=== PATIENT | male | born 1975 | race Caucasian/White ===

== ENCOUNTER 2021-07-04 12:57 | Outpatient (REF) | payer MEDICARE, MEDICAID, SELFPAY ==
[2021-07-04 15:05] LABS: Calculated LDL 131 mg/dL (<100); Cholesterol 205 mg/dL (<200); HDL Cholesterol 47 mg/dL (40-60); Triglyceride 137 mg/dL (<150)
[2021-07-04 15:13] LABS: Hemoglobin A1C 5.1 % (<5.7)
[2021-07-07 10:30] LABS: Hepatitis C Ab w Rflx HCV PCR Negative (Negative)
[2021-07-07 10:50] LABS: HIV-1/2 Ag & Ab Screen Negative (Negative)
== END 2021-07-04 12:58 | disposition home or self-care (01) ==
LOC: NCHCN 12:57
PROVIDERS: PCP Family Medicine; Visit Provider Family Medicine
DX: Z00.00 Encounter for general adult medical examination without abnormal findings (principal); Z11.4 Encounter for screening for human immunodeficiency virus [HIV]; Z11.59 Encounter for screening for other viral diseases
CPT/HCPCS: 80061; 86803; 87389; 83036

== ENCOUNTER 2022-11-10 18:27 | Outpatient (REF) | payer MEDICARE, MEDICAID, SELFPAY ==
--- NOTE | 2022-11-10 15:00 | SKI_PTH ---
PATIENT: Wild Baird LOC: [facility] U#:[id number] AGE/SX: 47/M ROOM: RE11/10/[address]: Loi Kline : 1975 BED: DIS: 11/10/2022 SPEC #: [id number] RECD: 11/10/22 18:34 STATUS: JOSHUA LUGO #: [id number] MANJINDER: 11/10/22 15:[address]: Loi Kline DEPT: Surgical Specimen RECD BY: Gisela Wong Tissues: 1 - SKIN BIOPSY(SHAVE/PUNCH) Procedures: SKIN LEVEL 4 Comments:
--- OUTSIDE RECORDS SUMMARY | 2022-11-10 18:35 | XMS_ITS | CCD ---
Author Name Unknown Address [address] [place] [address] [phone] Organization Unknown Address [address] [place] [address] [phone] Care Team Providers Care Lead Process Engineer Name Role Phone KHUSHBU HEREDIA Katelyn Attending Physician [phone] Vital Signs Unknown or Not Available. Allergies Allergy Code Allergy Type Reaction Status No Known Environmental Allergies 0 No known envir onmental allergies Active No Known Food Allergies 0 No known food allergies Active No Known Drug Allergies 0 No known drug allergies Active Procedures Unknown or Not Available. History of Immunizations Unknown or Not Available. Problems Unknown or Not Available. Results [facility] LINDSEY MULLERONIX* - Shana ect Date/Time: 02/13/2022 10:15 Test Name Code Test Result Test Units Test Ref Rang e Tier- 58576-3 PRE-OP N/A SARS COV2 RNA: 20596-9 NEGATIVE N/A REFERENCE RANGE: NEGAT Active Medications Unknown or Not Available. Medications Administered During Visit Unknown or Not Available. Encounters Encounter Diagnosis Diagnosis Code Start Date Pre-surgery testing [id number] 02/13/2022 Social History Smoking Status Code Start Date End Date Never smoker [id number] Patient Decision Aids Unknown or Not Available. Discharge Instructions You were admitted to [facility] on 02/13/2022 19:29 with a principal diagnosis of Encounter for preprocedural laboratory examination You had the following tests done:AUNG COVID RHEONIX* You were discharged from [facility] on 02/13/2022 19:29 Should you have any questions prior to discharge, please contact a member of your healthcare team. If you have left the hospital and have any questions, please contact your primary care physician. Chief Complaint and Reason For Visit Unknown or Not Available. Function Status Unknown or Not Available. Plan of Care Unknown or Not Available. Referral/Transition of Care Unknown or Not Available.
== END 2022-11-10 18:28 | disposition home or self-care (01) ==
LOC: LBN 18:27
PROVIDERS: PCP Family Medicine; Visit Provider Family Medicine
DX: C44.519 Basal cell carcinoma of skin of other part of trunk (principal)
CPT/HCPCS: 88305